=== PATIENT | female | born 1970 | race Caucasian/White ===

== ENCOUNTER 2020-02-20 04:43 | Emergency (ER) | payer OTHER ==
[2020-02-20 05:21] LABS: ABSOLUTE BASOPHILS # (AUTO) 0.1 10^3/uL (0.0-0.2); ABSOLUTE EOSINOPHILS # (AUTO) 0.1 10^3/uL (0.0-0.6); ABSOLUTE LYMPHOCYTES (AUTO) 0.9 10^3/uL (0.5-4.7); ABSOLUTE MONOCYTES (AUTO) 0.4 10^3/uL (0.1-1.4); ABSOLUTE NEUT (AUTO) 6.4 10^3/uL (1.7-8.2); BASOPHILS % (AUTO) 0.7 % (0-2); EOSINOPHILS % (AUTO) 1.3 % (0-6); HEMATOCRIT 32.4 % (36.0-47.0); HEMOGLOBIN 10.5 g/dL (12.0-15.5); MEAN CORPUSCULAR HEMOGLOBIN 24.2 pg (27.0-33.4); MEAN CORPUSCULAR HGB CONC 32.4 g/dL (32.0-36.0); MEAN CORPUSCULAR VOLUME 75 fl (80-97); MONOCYTES % (AUTO) 5.3 % (3-13); PLATELET COUNT 506 10^3/uL (150-450); RED BLOOD COUNT 4.34 10^6/uL (3.72-5.28); RED CELL DISTRIBUTION WIDTH 18.3 % (11.5-14.0); SEGMENTED NEUTROPHILS % (AUTO) 81.7 % (42-78); TOTAL CELLS COUNTED % (AUTO) 100 %; WHITE BLOOD COUNT 7.8 10^3/uL (4.0-10.5)
[2020-02-20 05:41] LABS: ALBUMIN 4.3 g/dL (3.5-5.0); ALKALINE PHOSPHATASE 106 U/L (38-126); ANION GAP 8 (5-19); ASPARTATE AMINO TRANSFERASE 17 U/L (14-36); BILIRUBIN,TOTAL 0.3 mg/dL (0.2-1.3); BLOOD UREA NITROGEN 7 mg/dL (7-20); CALCIUM 9.2 mg/dL (8.4-10.2); CARBON DIOXIDE 24 mmol/L (22-30); CHLORIDE 105 mmol/L (98-107); GLUCOSE 168 mg/dL (75-110); POTASSIUM 4.5 mmol/L (3.6-5.0); TOTAL PROTEIN 7.7 g/dL (6.3-8.2)
[2020-02-20] MEDS ORDERED: MORPHINE SULFATE 10 MG/ML INJ IV ONE (06:42)
[2020-02-20] MEDS ORDERED: KETOROLAC TROMETHAMINE INJ/PF 30 MG/1 ML SDV IV ONE (06:42)
[2020-02-20] MEDS ORDERED: ONDANSETRON HCL INJ/PF 4 MG/2 ML SDV IV ONE (06:42)
[2020-02-20] MEDS ORDERED: NORMAL SALINE 1000 ML 1,000 ML IV ONE (06:42)
--- NOTE | 2020-02-20 07:02 | ER Document Report ---
Entered by CHELY VIDAL SCRIBE 02/20/20 0642 Acting as scribe for:SLIM NAVARRETE MD ED GI/ - General Chief Complaint: Abdominal Cramping Stated Complaint: SEVERE MENSTRUAL CRAMPS Time Seen by Provider: 02/20/20 06:38 Primary Care Provider: [facility] [Provider Group] - Follow up in 1 week Information source: Patient Notes: This 49 year old female patient presents to the emergency department today with complaints of "severe menstrual cramps" for the last two days. She states that it feels like her normal menstrual cramps but adds that they are "far worse than any she has experienced". adds that she told him earlier that it "felt like a knife was stabbing her in the vagina". Patient is on her knees and elbows in the bed in obvious discomfort. - HPI Patient complains to provider of: Pelvic pain Onset: Other - two days Quality of pain: Stabbing - Related Data Allergies/Adverse Reactions: No Known Drug Allergies Allergy (Verified 02/20/20 08:24) Past Medical History - General Information source: Patient - Social History Smoking Status: Never Smoker Cigarette use (# per day): No Frequency of alcohol use: None Drug Abuse: None Lives with: Family Family History: Reviewed & Not Pertinent - Medical History Medical History: Negative Surgical Hx: Negative Review of Systems - Review of Systems Gastrointestinal: See HPI, Abdominal pain Physical Exam - Vital signs Vitals: Temp Pulse Resp BP Pulse Ox 97.8 F 80 18 151/101 H 99 02/20/20 04:54 02/20/20 04:54 02/20/20 04:54 02/20/20 04:54 02/20/20 04:54 Course - Vital Signs Vital signs: Temp Pulse Resp BP Pulse Ox 97.8 F 83 16 148/86 H 100 02/20/20 04:54 02/20/20 10:24 02/20/20 10:24 02/20/20 10:24 02/20/20 10:24 - Laboratory Result Diagrams: 02/20/20 05:09 02/20/20 05:09 Laboratory results interpreted by me: 02/20/20 02/20/20 02/20/20 05:09 05:09 07:44 Hgb 10.5 L Hct 32.4 L MCV 75 L MCH 24.2 L RDW 18.3 H Plt Count 506 H Lymph % (Auto) 11.0 L Seg Neutrophils % 81.7 H Glucose 168 H Urine Protein 30 H Urine Glucose (UA) 50 H Urine Blood LARGE H - Diagnostic Test Radiology reviewed: Image reviewed, Reports reviewed - Transvaginal ultrasound shows uterine fibroids with fluid in the endometrial canal consistent with menses. Discharge - Discharge Clinical Impression: Severe menstrual cramps Uterine fibroid Qualifiers: Uterine leiomyoma location: unspecified location Qualified Code(s): D25.9 - Leiomyoma of uterus, unspecified Anemia Qualifiers: Anemia type: iron deficiency Iron deficiency anemia type: other iron deficiency Qualified Code(s): D50.8 - Other iron deficiency anemias Condition: Stable Disposition: HOME, SELF-CARE Additional Instructions: Fibroids Fibroids are benign growths in the uterus. They can cause enlargement of the uterus, irregular bleeding, sever bleeding with periods, and abdominal pain. Anemia may result if periods are heavy. Fibroids tend to grow until menopause, then slowly shrink. If fibroids cause severe symptoms, they can be treated surgically. Call or return if vaginal bleeding or pain becomes severe. Your menstrual cramps are probably being made worse by the uterine fibroids. Take the medication as prescribed for the painful cramps. You have an iron deficiency anemia, most likely due to the heavy periods. Take the iron tablets as prescribed. Follow-up with [facility] for evaluation of the change in your menstrual patterns. You will likely need to have an endometrial biopsy done. RETURN TO THE EMERGENCY ROOM IF ANY NEW OR WORSENING SYMPTOMS. Prescriptions: Ferrous Sulfate [Ferosul] 325 mg PO DAILY #100 tablet Naproxen [Naprosyn] 500 mg PO BID PRN #20 tablet PRN Reason: Oxycodone HCl/Acetaminophen [Percocet 5-325 mg Tablet] 1 tab PO ASDIR PRN #12 tablet PRN Reason: Referrals: [facility] [Provider Group] - Follow up in 1 week I personally performed the services described in the documentation, reviewed and edited the documentation which was dictated to the scribe in my presence, and it accurately records my words and actions.
[2020-02-20 08:20] LABS: APPEARANCE,URINE CLEAR; BILIRUBIN,URINE NEGATIVE (NEGATIVE); COLOR,URINE YELLOW; GLUCOSE, URINE 50 mg/dL (NEGATIVE); KETONES,URINE NEGATIVE (NEGATIVE); LEUKOCYTE ESTERASE,URINE NEGATIVE (NEGATIVE); NITRITE,URINE NEGATIVE (NEGATIVE); PROTEIN,URINE 30 mg/dL (NEGATIVE); URINE SPECIFIC GRAVITY 1.016; UROBILINOGEN,URINE NEGATIVE mg/dL (<2.0)
--- NOTE | 2020-02-20 09:51 | RADIOLOGY REPORT (SQ) ---
EXAM DESCRIPTION: U/S NON-OB PELVIS TV W/O DOP IMAGES COMPLETED DATE/TIME: 02/20/2020 9:30 am REASON FOR STUDY: Severe menstrual cramps-change in bleeding patern COMPARISON: None. TECHNIQUE: Dynamic and static grayscale images acquired of the pelvis via transvaginal approach and recorded on PACS. Additional selected color Doppler and spectral images recorded. LIMITATIONS: None. FINDINGS: UTERUS: Enlarged. 2 fibroids, largest 3.3 cm. ENDOMETRIAL STRIPE: Heterogeneous. Indistinct margins. Approximately 12 mm. CERVIX: No nabothian cysts. RIGHT OVARY AND DOPPLER: Ovary not visualized. LEFT OVARY AND DOPPLER: Ovary not visualized. FREE FLUID: None noted. OTHER: No other significant finding. MEASUREMENTS: UTERUS: 12.7 x 8.5 x 8.1 cm. ENDOMETRIAL STRIPE: 12 mm. RIGHT OVARY: Not visualized. LEFT OVARY: Not visualized. IMPRESSION: Uterine fibroids. Small amount of blood in the endometrial cavity. TECHNICAL DOCUMENTATION: JOB ID: [id number] 2010 [employer]- All Rights Reserved Rev-12/19 Reading location - IP/workstation name: [email or web address]
[2020-02-20 10:26] VITALS: BP 148/86
== END 2020-02-20 10:24 | disposition home or self-care (01) ==
LOC: ER 04:43
DX: N94.6 Dysmenorrhea, unspecified (principal); D50.8 Other iron deficiency anemias; D25.9 Leiomyoma of uterus, unspecified
CPT/HCPCS: 99284; 96374; 96375; 36415; 83690; 85025; 81025; 80053; 81001; 76830; J1885; J2270; J2405; J7030; 96361